=== PATIENT | male | born 1990 | race Caucasian/White ===

== ENCOUNTER 2019-05-01 23:41 | Emergency (ER) | payer MEDICAID ==
[~2019-05-01] VITALS: Ht 180.3 cm; Wt 117.0 kg
[~2019-05-01 23:41] MED LIST: ACID1TAB7 PO; AMPH20TA2 PO; DEXT10TA7 PO; DIAZ10TA PO; LITH300T30 PO; QUET200T4 PO; QUET50TA5 PO
[2019-05-01 23:43] VITALS: BP 140/93
--- NOTE | 2019-05-01 23:59 | NUR ---
THE PT IS INTOXICATED. SMELLS OF ETOH. THE PT HAS MULTIPLE C/O. 1. HEIDY DENTAL PAIN 2. HEIDY PNEUMONIA 3. "BLACK GUMS" 4. COUGH
[2019-05-02] MEDS ORDERED: HYDROcodone/APAP 5/325 TABLET PO ONE
[2019-05-02] MEDS ORDERED: HYDROcodone/APAP 5/325 TABLET ONE (00:04)
== END 2019-05-02 00:46 | disposition home or self-care (01) ==
LOC: ED 23:56
DX: K02.9 Dental caries, unspecified (principal); R05 Cough; F31.9 Bipolar disorder, unspecified
CPT/HCPCS: 71045; 99283